=== PATIENT | female | born 1945 | race Hispanic/Latino ===

== ENCOUNTER → 2020-07-23 | Day surgery (SDC) | payer MEDICARE ==
[2020-07-20 13:55] LABS: BASOPHILS % 0.4 % (0.0-1.0); EOSINOPHILS # (AUTO) 0.1 (0.0-0.4); EOSINOPHILS % 1.9 % (0.0-6.0); HEMOGLOBIN 13.6 g/dL (12.0-16.0); LYMPHOCYTES % 12.8 % (18.0-39.1); MEAN CORPUSCULAR HEMOGLOBIN 29.2 pg (28-32); MEAN CORPUSCULAR HGB CONC 32.4 g/dL (31-35); MEAN CORPUSCULAR VOLUME 90.3 fL (81-99); MONOCYTES # (AUTO) 0.3 (0.2-0.8); MONOCYTES % 4.1 % (4.4-11.3); NEUTROPHILS % 80.5 % (38.7-80.0); PLATELET COUNT 241 x10e3/uL (140-360); RED BLOOD COUNT 4.65 x10e6/uL (3.6-5.1); RED CELL DISTRIBUTION WIDTH 12.7 % (11.7-14.4)
[2020-07-20 14:22] LABS: ANION GAP 12.9 mmol/L (8-16); CALCIUM 9.6 mg/dL (8.4-10.2); CREATININE, SERUM 0.96 mg/dL (0.57-1.11); POTASSIUM 3.9 mmol/L (3.5-5.1)
[~2020-07-23] MED LIST: ALAVERT10 M1 PO; BALANCED SALT SOLN (OPTH) 15 ML BTL IO ONE; BUPIVACAINE HC 0.75% PF 10ML VIAL INJ ONE; CYCLOPENTOLATE HCL 1% OPTH SOLN 2ML BTL ONE; EPINEPHRINE HCL 1:1000 1ML 1 MG/ML AMP ONE; FENTANYL CITRATE/PF 100MCG/2 ML INJ ONE; GATIFLOXACIN(OPTH) 5 ML LIQD ONE; HYDRALAZINE HCL 20 MG/ML VIAL ONE; LIDOCAINE 2% /EPINEPHRINE 20 ML SDV INJ ONE; LIDOCAINE HCL 2% LOCAL INJ 5 ML SDV VIAL INJ ONE; LIDOCAINE HCL-PF 4% 40 MG/1 ML 5ML AMP ONE; MIDAZOLAM HCL 2 MG/2 ML VIAL ONE; PHENYLEPHRINE HCL 2 ML DROPS ONE; PILOCARPINE HCL(OPTH) 15 ML LIQD ONE; POVIDONE IODINE 5% (OPTH) 30 ML BTL ONE; PROPOFOL IV EMULSION 10 MG/ML 20 ML VIAL ONE; TOBRAMYCIN/DEXAMETHASONE(OPTH) 3.5 GM TUBE ONE
[2020-07-23 09:33] VITALS: BP 154/67
== END | disposition home or self-care (01) ==
LOC: OR 06:59
PROVIDERS: ATTEND Ophthalmology
DX: H25.12 Age-related nuclear cataract, left eye (principal); F41.9 Anxiety disorder, unspecified; Z01.810 Encounter for preprocedural cardiovascular examination; Z01.812 Encounter for preprocedural laboratory examination; Z20.828 Contact with and (suspected) exposure to other viral communicable diseases
CPT/HCPCS: 36415; 66982; 80048; 85025; 93005; J0171; J0360; J2001 ×2; J2250; J2704; J3010; U0002; V2632

== ENCOUNTER → 2021-05-13 | Day surgery (SDC) | payer MEDICARE ==
[2021-05-11 11:06] LABS: BASOPHILS # (AUTO) 0.1 (0.0-0.1); BASOPHILS % 0.5 % (0.0-1.0); EOSINOPHILS # (AUTO) 0.3 (0.0-0.4); EOSINOPHILS % 2.5 % (0.0-6.0); HEMATOCRIT 40.3 % (34.2-44.1); HEMOGLOBIN 12.9 g/dL (12.0-16.0); LYMPHOCYTES # (AUTO) 1.4 (1.0-3.2); LYMPHOCYTES % 12.6 % (18.0-39.1); MEAN CORPUSCULAR HEMOGLOBIN 29.6 pg (28-32); MEAN CORPUSCULAR VOLUME 92.4 fL (81-99); MONOCYTES # (AUTO) 0.6 (0.2-0.8); MONOCYTES % 5.8 % (4.4-11.3); NEUTROPHILS # (AUTO) 8.4 (2.1-6.9); NEUTROPHILS % 78.3 % (38.7-80.0); PLATELET COUNT 247 x10e3/uL (140-360); RED BLOOD COUNT 4.36 x10e6/uL (3.6-5.1); RED CELL DISTRIBUTION WIDTH 12.7 % (11.7-14.4)
[2021-05-11 11:24] LABS: ANION GAP 15.7 mmol/L (8-16); CALCIUM 9.9 mg/dL (8.4-10.2); CREATININE, SERUM 0.96 mg/dL (0.57-1.11); POTASSIUM 3.7 mmol/L (3.5-5.1)
[~2021-05-13] MED LIST changes: +ALLEGRA ALLERGY60 MG PO; -CYCLOPENTOLATE HCL 1% OPTH SOLN 2ML BTL ONE; +CYCLOPENTOLATE HCL 2% OPTH SOLN 2 ML BTL OP ONE; -FENTANYL CITRATE/PF 100MCG/2 ML INJ ONE; -HYDRALAZINE HCL 20 MG/ML VIAL ONE; -LIDOCAINE 2% /EPINEPHRINE 20 ML SDV INJ ONE; -LIDOCAINE HCL 2% LOCAL INJ 5 ML SDV VIAL INJ ONE; +LOSARTAN POTASS25 MG PO; -MIDAZOLAM HCL 2 MG/2 ML VIAL ONE; +ONDANSETRON HCL INJ 2MG/ML 2ML 2 MG/ML VIAL ONE; -PROPOFOL IV EMULSION 10 MG/ML 20 ML VIAL ONE
[2021-05-13 09:40] VITALS: BP 139/71
== END | disposition home or self-care (01) ==
LOC: OR 06:28
PROVIDERS: ATTEND Ophthalmology
DX: H25.11 Age-related nuclear cataract, right eye (principal); I10 Essential (primary) hypertension; Z01.810 Encounter for preprocedural cardiovascular examination; Z01.812 Encounter for preprocedural laboratory examination; Z20.822 Contact with and (suspected) exposure to COVID-19
CPT/HCPCS: 36415; 66984; 80048; 85025; 93005; J0171; J2405; U0002

== ENCOUNTER 2024-09-01 10:57 | Emergency (ER) | payer MEDICARE ==
[~2024-09-01] VITALS: Ht 152.4 cm; Wt 65.5 kg
[~2024-09-01 10:57] MED LIST changes: -BALANCED SALT SOLN (OPTH) 15 ML BTL IO ONE; -BUPIVACAINE HC 0.75% PF 10ML VIAL INJ ONE; -CYCLOPENTOLATE HCL 2% OPTH SOLN 2 ML BTL OP ONE; -EPINEPHRINE HCL 1:1000 1ML 1 MG/ML AMP ONE; -GATIFLOXACIN(OPTH) 5 ML LIQD ONE; -LIDOCAINE HCL-PF 4% 40 MG/1 ML 5ML AMP ONE; -ONDANSETRON HCL INJ 2MG/ML 2ML 2 MG/ML VIAL ONE; -PHENYLEPHRINE HCL 2 ML DROPS ONE; -PILOCARPINE HCL(OPTH) 15 ML LIQD ONE; -POVIDONE IODINE 5% (OPTH) 30 ML BTL ONE; -TOBRAMYCIN/DEXAMETHASONE(OPTH) 3.5 GM TUBE ONE
[2024-09-01 11:05] VITALS: PULSE 95; RESP 16; TEMP 97.7
[2024-09-01] MEDS ORDERED: CEPHALEXIN500 MG PO (11:55)
[2024-09-01 12:26] VITALS: BP 179/76; PULSE 89; RESP 16; TEMP 97.8; O2SAT 98
== END 2024-09-01 12:08 | disposition home or self-care (01) ==
LOC: FSED 11:00
DX: R30.0 Dysuria (principal); N39.0 Urinary tract infection, site not specified; K59.00 Constipation, unspecified
CPT/HCPCS: 99284

== ENCOUNTER 2024-09-04 12:44 | Inpatient (IN) | payer MEDICARE ==
[~2024-09-04] VITALS: Ht 152.4 cm; Wt 63.0 kg
[~2024-09-04 12:44] MED LIST changes: +CEPHALEXIN500 MG PO
[2024-09-04 13:24] VITALS: TEMP 99.4
[2024-09-04 14:07] LABS: BASOPHILS % 0.2 % (0.0-1.0); EOSINOPHILS % 0.1 % (0.0-6.0); HEMATOCRIT 33.8 % (34.2-44.1); HEMOGLOBIN 10.1 g/dL (12.0-16.0); LYMPHOCYTES # (AUTO) 0.6 (1.0-3.2); LYMPHOCYTES % 4.1 % (18.0-39.1); MEAN CORPUSCULAR HEMOGLOBIN 28.5 pg (28-32); MEAN CORPUSCULAR HGB CONC 29.9 g/dL (31-35); MEAN CORPUSCULAR VOLUME 95.5 fL (81-99); MONOCYTES % 6.9 % (4.4-11.3); NEUTROPHILS % 87.9 % (38.7-80.0); PLATELET COUNT 437 x10e3/uL (140-360); RED BLOOD COUNT 3.54 x10e6/uL (3.6-5.1); RED CELL DISTRIBUTION WIDTH 13.5 % (11.7-14.4)
[2024-09-04] MEDS: SODIUM CHLORIDE 0.9% 1000ML 1,000 ML IV STA ×2 (14:13→16:25)
[2024-09-04] MEDS: ONDANSETRON HCL INJ 2MG/ML 2ML 2 MG/ML VIAL IV STA (14:13)
[2024-09-04 14:23] LABS: INR 1.24; PROTHROMBIN TIME 16.3 seconds (11.9-14.5)
[2024-09-04 14:24] LABS: PARTIAL THROMBOPLASTIN TIME 32.6 seconds (23.8-35.5)
[2024-09-04 14:33] LABS: ALBUMIN 2.6 g/dL (3.5-5.0); ALBUMIN/GLOBULIN RATIO 0.7 (0.8-2.0); ANION GAP 17.7 mmol/L (8-16); BILIRUBIN,TOTAL 0.6 mg/dL (0.2-1.2); CALCIUM 8.6 mg/dL (8.4-10.2); CREATININE, SERUM 0.76 mg/dL (0.57-1.11); POTASSIUM 4.7 mmol/L (3.5-5.1); TOTAL PROTEIN 6.4 g/dL (6.5-8.1)
[2024-09-04] MEDS ORDERED: IOPAMIDOL 370 MG/ML 100 ML INFUS..BTL INJ ONE (14:36)
[2024-09-04 14:40] LABS: TROPONIN I 0.047 ng/mL (0-0.300)
[2024-09-04 14:52] LABS: BILIRUBIN,URINE NEGATIVE (NEGATIVE); CLARITY,URINE SL CLOUDY (CLEAR); COLOR,URINE YELLOW (YELLOW); GLUCOSE, URINE NEGATIVE (NEGATIVE); KETONES,URINE 1+ (NEGATIVE); LEUKOCYTE ESTERASE ,URINE NEGATIVE (NEGATIVE); NITRITE,URINE NEGATIVE (NEGATIVE); PH,URINE 6 (5 - 7); PROTEIN,URINE DIPSTICK 1+ (NEGATIVE); URINE UROBILINOGEN 0.2 mg/dL (0.2 - 1)
[2024-09-04 15:07] LABS: BACTERIA,URINE FEW /HPF; EPITHELIAL CELLS,URINE MODERATE /LPF; RBC,URINE 0-5 /HPF (0-5)
[2024-09-04 16:26] LABS: INFLUENZA A AG NEGATIVE (NEGATIVE)
[2024-09-04 16:27] LABS: CORONAVIRUS COVID-19 AG NEGATIVE (NEGATIVE); INFLUENZA B AG NEGATIVE (NEGATIVE)
[2024-09-04 17:30] VITALS: PULSE 99; RESP 16
[2024-09-04] MEDS ORDERED: ONDANSETRON HCL INJ 2MG/ML 2ML 2 MG/ML VIAL IV PRN (18:15)
[2024-09-04] MEDS ORDERED: Morphine 2mg Syringe 2 MG/ML SYR IV PRN (18:15)
[2024-09-04 20:44] VITALS: BP 161/77; PULSE 107; RESP 20; TEMP 98.2; O2SAT 95
[2024-09-04 21:00] VITALS: BP 161/77; PULSE 107; RESP 20; TEMP 98.2; O2SAT 95
[2024-09-04 21:27] VITALS: BP_SYST 161; BP_SYST 99; BP_DIAS 69; BP_DIAS 77; PULSE 107; PULSE 78; RESP 18; RESP 20; TEMP 98.2; O2SAT 95; O2SAT 98
[2024-09-04 22:24] VITALS: PULSE 96; RESP 18; O2SAT 93
[2024-09-05] VITALS (8 sets, daily range): BP systolic 114–169; BP diastolic 71–80; PULSE 88–108; RESP 16–20; TEMP 97.6–99.1; O2SAT 94–98
[2024-09-05 02:27] LABS: TROPONIN I 0.04 ng/mL (0-0.300)
[2024-09-05 06:26] LABS: BASOPHILS % 0.3 % (0.0-1.0); EOSINOPHILS # (AUTO) 0.2 (0.0-0.4); EOSINOPHILS % 1.4 % (0.0-6.0); HEMATOCRIT 28.9 % (34.2-44.1); LYMPHOCYTES # (AUTO) 0.6 (1.0-3.2); LYMPHOCYTES % 4.7 % (18.0-39.1); MEAN CORPUSCULAR HEMOGLOBIN 28.8 pg (28-32); MEAN CORPUSCULAR HGB CONC 31.1 g/dL (31-35); MEAN CORPUSCULAR VOLUME 92.3 fL (81-99); MONOCYTES # (AUTO) 0.9 (0.2-0.8); MONOCYTES % 7.5 % (4.4-11.3); NEUTROPHILS # (AUTO) 10.2 (2.1-6.9); NEUTROPHILS % 85.4 % (38.7-80.0); PLATELET COUNT 477 x10e3/uL (140-360); RED BLOOD COUNT 3.13 x10e6/uL (3.6-5.1); RED CELL DISTRIBUTION WIDTH 13.7 % (11.7-14.4); WHITE BLOOD COUNT 11.94 x10e3/uL (4.8-10.8)
[2024-09-05 06:50] LABS: ALBUMIN 2.4 g/dL (3.5-5.0); ALBUMIN/GLOBULIN RATIO 0.6 (0.8-2.0); ANION GAP 15.8 mmol/L (8-16); BILIRUBIN,TOTAL 0.4 mg/dL (0.2-1.2); CALCIUM 8.7 mg/dL (8.4-10.2); CHOL/HDL RATIO 6.1 (3.0-3.6); CREATININE, SERUM 0.82 mg/dL (0.57-1.11); POTASSIUM 3.8 mmol/L (3.5-5.1); TOTAL PROTEIN 6.3 g/dL (6.5-8.1)
[2024-09-05 07:06] LABS: TROPONIN I 0.035 ng/mL (0-0.300)
[2024-09-05] MEDS: LOSARTAN POTASSIUM 25 MG TAB PO SCH (08:48)
[2024-09-05] MEDS ORDERED: GUAIFENESIN/DEXTROMETHORPHAN LIQD 5 ML UDC NG PRN (13:30)
[2024-09-05] MEDS ORDERED: BENZONATATE 100 MG CAP PO SCH (15:00)
[2024-09-05] MEDS ORDERED: LIDOCAINE 4% PATCH TP PRN (15:30)
[2024-09-05] MEDS: ACETAMINOPHEN 325 MG TAB PO PRN (15:41)
[2024-09-05 16:29] LABS: BODY FLUID TYPE PLEURAL
[2024-09-05 16:30] LABS: BODY FLUID COLOR YELLOW; RBC,BODY FLUID 3000 cells/uL; WBC,BODY FLUID 895 cells/uL
[2024-09-05 16:31] LABS: BODY FLUID APPEARANCE CLOUDY
[2024-09-05 16:32] LABS: BODY FLUID APPEARANCE CLOUDY; BODY FLUID COLOR RED; BODY FLUID TYPE PERITONEAL; RBC,BODY FLUID 7000 cells/uL; WBC,BODY FLUID 1251 cells/uL
[2024-09-05 18:41] LABS: LYMPHOCYTES,BODY FLUID 56 %; MONO/MACROPHG,BODY FLUID 35 %; NEUTROPHILS,BODY FLUID 9 %; TOTAL CELLS COUNTED (DIFF) 100
[2024-09-05 18:42] LABS: LYMPHOCYTES,BODY FLUID 40 %; MONO/MACROPHG,BODY FLUID 21 %; NEUTROPHILS,BODY FLUID 37 %; OTHER CELLS,BODY FLUID 2 %; TOTAL CELLS COUNTED (DIFF) 100
[2024-09-06] VITALS (7 sets, daily range): BP systolic 138–173; BP diastolic 71–93; PULSE 66–91; RESP 16–19; TEMP 97.7–98.9; O2SAT 95–100
[2024-09-06 05:45] LABS: BASOPHILS # (AUTO) 0.1 (0.0-0.1); BASOPHILS % 0.6 % (0.0-1.0); EOSINOPHILS # (AUTO) 0.1 (0.0-0.4); EOSINOPHILS % 1.3 % (0.0-6.0); HEMATOCRIT 30.6 % (34.2-44.1); HEMOGLOBIN 9.5 g/dL (12.0-16.0); LYMPHOCYTES # (AUTO) 0.6 (1.0-3.2); LYMPHOCYTES % 6.6 % (18.0-39.1); MEAN CORPUSCULAR HEMOGLOBIN 28.7 pg (28-32); MEAN CORPUSCULAR VOLUME 92.4 fL (81-99); MONOCYTES # (AUTO) 0.5 (0.2-0.8); MONOCYTES % 5.7 % (4.4-11.3); NEUTROPHILS # (AUTO) 7.6 (2.1-6.9); NEUTROPHILS % 85.2 % (38.7-80.0); PLATELET COUNT 478 x10e3/uL (140-360); RED BLOOD COUNT 3.31 x10e6/uL (3.6-5.1); RED CELL DISTRIBUTION WIDTH 13.7 % (11.7-14.4); WHITE BLOOD COUNT 8.92 x10e3/uL (4.8-10.8)
[2024-09-06 06:06] LABS: ALBUMIN 2.3 g/dL (3.5-5.0); ALBUMIN/GLOBULIN RATIO 0.6 (0.8-2.0); ANION GAP 13.6 mmol/L (8-16); BILIRUBIN,TOTAL 0.4 mg/dL (0.2-1.2); CALCIUM 8.7 mg/dL (8.4-10.2); CREATININE, SERUM 0.84 mg/dL (0.57-1.11); POTASSIUM 3.6 mmol/L (3.5-5.1); TOTAL PROTEIN 6.2 g/dL (6.5-8.1)
[2024-09-06] MEDS ORDERED: LIDOCAINE1 EAC1 TOP (17:17)
[2024-09-06] MEDS ORDERED: AZITHROMYCIN250 MG PO (17:17)
[2024-09-06] MEDS ORDERED: ACETAMINOPHEN325 M1 PO (17:17)
[2024-09-06] MEDS ORDERED: ONDANSETRON ODT4 MG PO (17:17)
[2024-09-06] MEDS ORDERED: AMOX TR-K CLV1 EAC2 PO (17:17)
[2024-09-09 06:08] LABS: TOTAL PROTEIN,BODY FLUID 4.1 g/dL
[2024-09-09 06:12] LABS: TOTAL PROTEIN,BODY FLUID 4.5 g/dL
== END 2024-09-06 18:50 | disposition home health service (06) | DRG 187 ==
LOC: ER 12:54 → ERHOLD 18:10 → MED/SURG3 18:46
PROVIDERS: ADMIT Internal Medicine; ATTEND Internal Medicine
PROC: 0W9G3ZZ Drainage of Peritoneal Cavity, Percutaneous Approach (ICD-10-PCS; principal; 2024-09-05)
PROC: 0W9B3ZZ Drainage of Left Pleural Cavity, Percutaneous Approach (ICD-10-PCS; 2024-09-05)
DX: J90 Pleural effusion, not elsewhere classified (principal); R18.8 Other ascites; I10 Essential (primary) hypertension; R55 Syncope and collapse; R19.7 Diarrhea, unspecified; D64.9 Anemia, unspecified; R19.00 Intra-abdominal and pelvic swelling, mass and lump, unspecified site; R93.89 Abnormal findings on diagnostic imaging of other specified body structures; Z11.52 Encounter for screening for COVID-19; Z88.2 Allergy status to sulfonamides; Z88.8 Allergy status to other drugs, medicaments and biological substances
CPT/HCPCS: 32555; 36415; 49083; 70450; 70486; 71045; 71260; 72125; 74177; 74470; 80053; 80061; 81001; 82040; 82550; 82945; 83605; 83615; 83735; 83880; 84157; 84478; 84484; 85025; 85610; 85730; 87040; 87070; 87086; 87205; 88112; 88305; 89051; 93005; 93306; 94799; 99285; C1729; J2405; J2470; J2543; J7030; J7050; Q9967